=== PATIENT | female | born 1940 | race Caucasian/White ===

== ENCOUNTER 2017-01-25 11:45 | Emergency (ER) | payer MEDICARE, MEDICAID ==
--- NOTE | 2017-01-25 12:39 | UC ---
Throat Pain/Nasal Ronny HPI - HPI Summary HPI Summary: 76 Y/O female c/O ear and throat pain with nasal congestion and headache x 2 days. Denies fever or chills, Denies nausea, vomiting and diarrhea. - History of Current Complaint Chief Complaint: UCGeneralIllness Stated Complaint: RIGHT EAR PAIN Hx Obtained From: Patient ?: No Onset/Duration: Sudden Onset Severity: Moderate Pain Intensity: 5 Pain Scale Used: 0-10 Numeric Cough: Nonproductive Associated Signs & Symptoms: Positive: Sinus Discomfort - Epiglottits Risk Factors Epiglottis Risk Factors: Negative - Allergies/Home Medications Allergies/Adverse Reactions: Allergies Allergy/AdvReac Type Severity Reaction Status Date / Time Penicillins Allergy Swelling Verified 01/25/17 11:53 Of Face,Lips,& Throat All -Cillians Allergy Swelling Uncoded 01/25/17 11:53 Of Face,Lips,& Throat Home Medications: Home Medications traMADol TAB* [Ultram*] 2 tab PO PRN 01/25/17 [History] PMH/Surg Hx/FS Hx/Imm Hx Previously Healthy: Yes Endocrine History Of: Reports: Diabetes Cardiovascular History Of: Reports: Hypertension Denies: Cardiac Disorders - Surgical History Surgical History: Yes Surgery Procedure, Year, and Place: Colostomy/Colostomy Reversal - Social History Alcohol Use: None Substance Use Type: None Smoking Status (MU): Former Smoker - Immunization History Most Recent Influenza Vaccination: Not UTD Most Recent Pneumonia Vaccination: Not UTD Review of Systems Constitutional: Negative Skin: Negative Eyes: Negative ENT: Sore Throat, Nasal Discharge Respiratory: Cough Cardiovascular: Negative Gastrointestinal: Negative Genitourinary: Negative Motor: Negative Neurovascular: Negative Neurological: Negative Psychological: Negative All Other Systems Reviewed And Are Negative: Yes Physical Exam Triage Information Reviewed: Yes Appearance: Well-Appearing Vital Signs: Initial Vital Signs Temp 98.4 F 01/25/17 11:56 Pulse 95 01/25/17 11:56 Resp 18 01/25/17 11:56 BP 173/73 01/25/17 11:56 Pulse Ox 98 01/25/17 11:56 Vital Signs Reviewed: Yes Eye Exam: Normal ENT: Positive: Pharyngeal erythema, Nasal congestion, TMs normal Dental Exam: Normal Neck exam: Normal Respiratory Exam: Normal Respiratory: Positive: Lungs clear, Normal breath sounds Cardiovascular Exam: Normal Cardiovascular: Positive: RRR Abdominal Exam: Normal Abdomen Description: Positive: Nontender Bowel Sounds: Positive: Present Musculoskeletal Exam: Normal Musculoskeletal: Positive: Strength Intact Neurological Exam: Normal Neurological: Positive: Alert Psychological Exam: Normal Throat Pain/Nasal Course/Dx - Differential Dx/Diagnosis Differential Diagnosis/HQI/PQRI: Pharyngitis, Tonsillitis Provider Diagnoses: Pharyngitis / Upper respiratory viral infection Discharge - Discharge Plan Condition: Stable Disposition: HOME Patient Education Materials: Pharyngitis (ED) Additional Instructions: Take mucinex every 12 hours for seven days. Drink plenty of fluids. Your strep test was negative. May return to walk in clinic if symptoms worsen or may follow up with Primary care physician.
[2017-01-25 13:26] VITALS: BP 151/69
== END 2017-01-25 13:30 | disposition home or self-care (01) ==
LOC: UCCORT 11:45
DX: J06.9 Acute upper respiratory infection, unspecified (principal); J02.9 Acute pharyngitis, unspecified; Z88.0 Allergy status to penicillin; Z87.891 Personal history of nicotine dependence
CPT/HCPCS: 87651; 99212; G0463